=== PATIENT | female | born 1990 | race Caucasian/White ===

== ENCOUNTER 2017-01-25 01:00 | Emergency (ER) | payer MEDICARE, OTHER ==
[~2017-01-25] VITALS: Ht 182.9 cm; Wt 102.3 kg
[~2017-01-25 01:00] MED LIST: SULF1TAB4 PO; VICOT PO
[2017-01-25 05:13] VITALS: BP 124/71
== END 2017-01-25 05:36 | disposition home or self-care (01) ==
LOC: EMS 01:01
DX: L02.11 Cutaneous abscess of neck (principal); M54.2 Cervicalgia; E03.9 Hypothyroidism, unspecified
CPT/HCPCS: 99283

== ENCOUNTER 2017-02-06 22:32 | Emergency (ER) | payer MEDICARE ==
[~2017-02-06] VITALS: Ht 185.4 cm; Wt 100.0 kg
[2017-02-06 23:58] LABS: CREATININE 1.14 mg/dL (0.60-1.30); POTASSIUM 3.8 mmol/L (3.5-5.1)
[2017-02-07 00:08] LABS: APPEARANCE,URINE CLEAR (CLEAR); GLUCOSE, URINE (UA) NEGATIVE (NEGATIVE); KETONES,URINE NEGATIVE (NEGATIVE); LEUKOCYTE ESTERASE ,URINE NEGATIVE (NEGATIVE); OCCULT BLOOD,URINE NEGATIVE (NEGATIVE); PH,URINE 5.5 (5.0-8.0); PROTEIN,URINE POS 1+ (NEGATIVE)
[2017-02-07] MEDS ORDERED: SODIUM CHLORIDE 0.9% 1,000 ML IV ONE (00:15)
[2017-02-07] MEDS ORDERED: ONDANSETRON HCL 4 MG/2 ML VIAL IVP ONE ×2 (00:15→01:00)
[2017-02-07 00:20] LABS: ADD UA MICROSCOPIC NO
[2017-02-07 00:26] LABS: MONOCYTES # (AUTO) 0.3 K/uL (0.1-1.0); NEUTROPHILS # (AUTO) 5.8 K/uL (1.8-7.7)
[2017-02-07] MEDS ORDERED: BARIUM SULFATE 0.1% SUSPENSION 450 ML BOTTLE PO ONE (00:30)
[2017-02-07] MEDS ORDERED: IOVERSOL 350 MG/ML 150 ML VIAL ONE (00:33)
[2017-02-07] MEDS ORDERED: SODIUM CHLORIDE 0.9% 100 ML ONE (00:34)
[2017-02-07 00:41] LABS: BASOPHILS % (AUTO) 0.1 % (0.0-2.0); EOSINOPHILS % (AUTO) 1.2 % (1.0-6.0); HEMATOCRIT 34.1 % (36-46); HEMOGLOBIN 11.6 g/dL (12.0-16.0); LYMPHOCYTES % (AUTO) 24.6 % (22.0-44.0); MEAN CORPUSCULAR HEMOGLOBIN 31.8 pg (26.0-34.0); MEAN CORPUSCULAR HGB CONC 34.2 G/dL (31.0-37.0); MEAN CORPUSCULAR VOLUME 93 fL (80-100); NEUTROPHILS % (AUTO) 70.1 % (40.0-70.0); PLATELET COUNT (AUTO) 314 K/uL (150-450); RED BLOOD CELL COUNT(AUTO) 3.65 MIL/uL (4.00-5.20); RED CELL DISTRIBUTION WIDTH 15.4 % (11.5-14.5); WHITE BLOOD COUNT (AUTO) 8.3 K/uL (4.5-11.0)
[2017-02-07 00:47] LABS: BILIRUBIN,TOTAL 0.8 mg/dL (0.1-1.0)
[2017-02-07 00:48] LABS: ALBUMIN 3.8 g/dL (3.4-5.0)
[2017-02-07 04:25] VITALS: BP 122/79
== END 2017-02-07 04:26 | disposition home or self-care (01) ==
LOC: EMS 22:34
DX: I31.3 Pericardial effusion (noninflammatory) (principal); R10.32 Left lower quadrant pain; E03.9 Hypothyroidism, unspecified
CPT/HCPCS: 36415; 74177; 80053; 81003; 83690; 84703; 85025; 96361; 96374; 96376; 99285; J2405; J7030; J7050; Q9967